=== PATIENT | female | born 1965 | race African-American/Black ===

== ENCOUNTER → 2024-03-10 | Day surgery (SDC) | payer BC ==
[~2024-03-10] MED LIST: AMOXICILLIN500 MG PO; ASPIRIN81 MG PO; ATORVASTATIN CA10 MG PO; BIOTIN1 MG; ELDERBERRY350 MG; FUROSEMIDE40 MG PO; GLUCAGON FOR INJ 1 MG VIAL ONE; GLYCOPYRROLATE INJ 0.2 MG/ML VIAL ONE; HYOSCYAMINE SULFATE 0.5 MG/ML INJ ONE; JARDIANCE25 MG PO; KETAMINE 50MG/5ML SYR ONE; LEXAPRO10 MG PO; LIDOCAINE HCL 2% LOCAL INJ 5 ML SDV VIAL INJ ONE; LORATADINE10 MG PO; LOSARTAN POTASS25 MG PO; MINOXIDIL2.5 MG PO; MOUNJARO12.5 MG/0.; MULTI-VITAMIN1 EACH PO; PROPOFOL IV EMULSION 10 MG/ML 20 ML VIAL ONE; PROPOFOL IV EMULSION 50 ML IV ONE; PROTONIX40 MG/ML PO; ULTRAM 50MG50 MG PO; ZETIA10 MG PO
[2024-03-10] MEDS: LACTATED RINGER'S 1,000 ML ONE (07:47)
[2024-03-10 09:29] VITALS: TEMP 98
[2024-03-10 09:55] VITALS: BP 132/89; PULSE 79; RESP 18; O2SAT 100
== END | disposition home or self-care (01) ==
LOC: OR 06:47
PROVIDERS: ATTEND Internal Medicine Gastroenterology
DX: Z12.11 Encounter for screening for malignant neoplasm of colon (principal); D12.4 Benign neoplasm of descending colon; K62.1 Rectal polyp; K57.30 Diverticulosis of large intestine without perforation or abscess without bleeding; K64.8 Other hemorrhoids; K21.9 Gastro-esophageal reflux disease without esophagitis; E11.9 Type 2 diabetes mellitus without complications; I10 Essential (primary) hypertension; E78.5 Hyperlipidemia, unspecified; J45.909 Unspecified asthma, uncomplicated; E66.9 Obesity, unspecified; Z91.041 Radiographic dye allergy status; Z01.810 Encounter for preprocedural cardiovascular examination; Z79.84 Long term (current) use of oral hypoglycemic drugs; Z79.85 Long-term (current) use of injectable non-insulin antidiabetic drugs; Z79.899 Other long term (current) drug therapy
CPT/HCPCS: 45380; 45385; 93005; J1610; J1980; J2003; J2704 ×2; J7121